=== PATIENT | male | born 1975 | race Caucasian/White ===

== ENCOUNTER 2016-12-11 12:12 | Emergency (ER) | payer BC, OTHER ==
[~2016-12-11] VITALS: Ht 182.9 cm; Wt 140.0 kg
[~2016-12-11 12:12] MED LIST: IBUP-232 PO; ROBA750T3 PO; Z.0.NO CURRENT MEDS
[2016-12-11 12:16] VITALS: BP 157/94; PULSE 108; RESP 17; TEMP 98.6; O2SAT 99
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
[2016-12-11] MEDS ORDERED: HYDR-3533 PO (13:22)
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
[2016-12-11] MEDS ORDERED: IBUPROFEN 600 MG TAB PO ONE (13:30)
== END 2016-12-11 14:12 | disposition home or self-care (01) ==
LOC: PHED 12:12
DX: M79.672 Pain in left foot (principal); F17.200 Nicotine dependence, unspecified, uncomplicated
CPT/HCPCS: 73630; 99283